=== PATIENT | female | born 2005 | race African-American/Black ===

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

== ENCOUNTER 2024-06-12 00:49 | Emergency (ER) | payer OTHER, SELFPAY ==
--- NOTE | ~2024-06-12 | US_ITS ---
EXAM: Pelvic Ultrasound CLINICAL INDICATION: Pelvic pain. Vaginal bleeding. COMPARISON: None available TECHNIQUE: The pelvis was evaluated using transabdominal and transvaginal imaging. FINDINGS: The uterus measures 7.4 x 2.9 x 3.8 cm in longitudinal by AP by transverse dimension. The endometrial stripe is not thickened and measures 0.2 cm. A small nabothian cyst is noted within the cervix. The left ovary measures approximately 2.8 x 1.4 x 1.1 cm and is normal. The right ovary measures approximately 2.3 x 2.3 x 2.0 cm and is also normal. There are no abnormal adnexal masses. There is no free fluid in the pelvis. US/US pelvic and transvaginal IMPRESSION: Unremarkable sonographic imaging of the pelvis. Electronically signed by: Jonathon Fisher MD 06/12/2024 08:15 AM EDT
[2024-06-12 01:18] VITALS: BP 134/67; PULSE 87; RESP 18; TEMP 36.8; O2SAT 98; BMI 40.1
[2024-06-12 01:32] LABS: Basophils Absolute Auto 0.1 X10*3/uL (0.0-0.2); Basophils Percent Auto 0.5 % (0-2); Eosinophils Absolute Auto 0.3 X10*3/uL (0.0-0.4); Eosinophils Percent Auto 2.3 % (0-4); Hematocrit 36.3 % (37.0-47.0); Hemoglobin 12.3 g/dl (12.0-16.0); Imm Gran Abs Auto 0.04 X10*3/uL (0.00-0.03); Imm Gran Pct Auto 0.3 % (0.0-0.4); Lymphocytes Absolute Auto 4.2 X10*3/uL (1.2-4.9); Lymphocytes Percent Auto 36.2 % (20-40); MANUAL DIFF FLAG SCAN; Mean Corpuscular HGB Conc 33.9 g/dl (31.0-35.0); Mean Corpuscular Hemoglobin 31.1 pg (27.0-33.0); Mean Corpuscular Volume 91.9 fL (80.0-98.0); Mean Platelet Volume 10.2 fL (9.4-12.3); Monocytes Absolute Auto 0.6 X10*3/uL (0.1-1.2); Monocytes Percent Auto 5.5 % (2-11); Neutrophils Absolute Auto 6.4 x10*3/uL (2.0-8.3); Neutrophils Percent Auto 55.2 % (45-73); Platelet Count 219 X10*3/uL (160-400); Red Blood Count 3.95 X10*6/uL (4.20-5.50); Red Cell Distribution Width 12.1 % (11.0-16.0); SCAN SMEAR FLAG 1; White Blood Count 11.6 X10*3/uL (4.8-10.8)
[2024-06-12 01:51] LABS: Alanine Aminotransferase 15 U/L (0-31); Albumin Level 4.1 g/dL (3.5-5.0); Alkaline Phosphatase 60 U/L (39-117); Anion Gap 11 (12-20); Aspartate Amino Transferase 16 U/L (5-31); Bilirubin Total 0.2 mg/dL (0.0-1.0); Blood Urea Nitrogen 17 mg/dL (9-16); Calcium 9.3 mg/dL (8.4-10.2); Carbon Dioxide 25 mmol/L (22-29); Chloride 109 mmol/L (96-108); Creatinine Clr Calc Pharmacy 135.2; Estimated Glomerular Filt Rate > 60; Glucose Random 82 mg/dL (60-115); Potassium 3.8 mmol/L (3.3-5.1); Sodium 141 mmol/L (135-145); Total Protein 7.7 g/dL (6.5-8.0)
[2024-06-12 01:52] LABS: HCG Quantitative < 2 mIU/mL
[2024-06-12 02:12] LABS: SLIDE REVIEW VERIFIED
[2024-06-12 03:18] LABS: Appearance Urine Clear; Color Urine Yellow; Glucose Urine UA Negative (Negative); Leukocyte Esterase Urine Negative (Negative); Nitrite Urine Negative (Negative); PH 6.5 (5.0-9.0); Specific Gravity - Urine >= 1.030 (1.005-1.025); UMIC TRIGGER UACC YES; Urine Blood Large (3+) (Negative); Urine Ketones Negative (Negative); Urine Protein Trace mg/dL (Neg-Trace)
[2024-06-12 03:30] LABS: Bacteria Urine 1+ (None Seen); Hyaline Casts Urine 0-2 /LPF (0-2); UACC Culture Trigger YES
[2024-06-12 04:42] VITALS: BP 100/67; PULSE 72; RESP 18; TEMP 36.3; O2SAT 99
--- NOTE | 2024-06-12 07:13 | ED_ITS ---
HPI - Female Genitourinary General Chief complaint: Vaginal Bleeding Stated complaint: vag bleeding Time Seen by Provider: 06/12/24 06:33 Source: patient and family Mode of arrival: ambulatory Limitations: no limitations History of Present Illness ED Provider: Nathalia Garza APRN HPI Narrative: 19-year-old female with no known medical history presents to the ER with complaints of vaginal bleeding since June 08. Patient reports her last menstrual cycle was May 30. She normally has a menstrual cycle every month and does not normally have irregular bleeding. She has had bright red bleeding and has needed to use 3-4 tampons daily. No clots. Starting June 08 she did start to have some intermittent left lower pelvic discomfort which is described as sharp stabbing. At this time she does not have any pain. She denies any associated vomiting, diarrhea, constipation, urinary symptoms, fevers or chills. No vaginal discharge, rashes or lesions. Patient presents with her sexual partner. She denies any new sexual partners. She tells me that she was recently tested for STDs and was negative and she is not interested in STD testing at this time. She has never seen a clinical documentation specialist or had a pelvic pain. She is not on control at this time. Related Data Previous Rx's ?Medication ?Instructions ?Recorded amoxicillin 875 mg-potassium 1 tab PO BID #14 tabs 04/01/23 clavulanate 125 mg tablet chlorhexidine gluconate 0.12 % 15 ml buccal BID #473 mL 04/01/23 mouthwash (Peridex) ibuprofen 600 mg tablet 600 mg PO Q8H PRN pain #14 tabs 04/01/23 Allergies Allergy/AdvReac Type Severity Reaction Status Date / Time No Known Allergies Allergy Verified 06/12/24 01:21 Review of Systems 2 Review of Systems: Yes all other systems are reviewed and are negative Constitutional: Constitutional: Reports no additional constitutional complaints, Denies body ache(s), Denies chills, Denies fever(s), Denies headache(s) and Denies weakness Eyes: Eyes: Reports no additional eye complaints and Denies change in vision ENT: Reports system reviewed and no additional complaints, except as documented, Denies dizziness, Denies headache(s), Denies nasal congestion, Denies nasal discharge and Denies neck pain Cardiovascular: Cardiovascular: Reports no additional cardiovascular complaints, Denies chest pain, Denies leg edema and Denies dyspnea Respiratory: Respiratory: Reports no additional respiratory complaints, Denies cough and Denies dyspnea Gastrointestinal: Gastrointestinal: Reports no additional gastrointestinal complaints, Denies abdominal pain, Denies diarrhea, Denies nausea and Denies vomiting Genitourinary: Genitourinary: Reports no additional female genitourinary complaints, Reports abnormal vaginal bleeding, Denies hematuria, Denies dysuria, Reports pelvic pain, Denies flank pain, Denies urinary incontinence, Denies urinary hesitancy, Denies urinary urgency, Denies vaginal discharge and Denies vaginal pruritus Musculoskeletal: Musculoskeletal: Reports no additional musculoskeletal complaints, Denies back pain, Denies arthralgias, Denies joint swelling, Denies neck pain, Denies numbness and Denies tingling Integumentary/Breasts: Skin/Breast: Reports system reviewed and no additional complaints, except as docu and Denies rash Neurologic: Reports system reviewed and no additional complaints, except as documented, Denies Abnormal speech present, Denies dizziness, Denies headache(s), Denies numbness, Denies tingling and Denies weakness PMFSH Past Medical History Attestation statement: The following information was validated with the patient. Source: old records reviewed and nursing notes reviewed Social History Social History Alcohol intake: current Smoked in Last 30 Days: No Use of substances other than those prescribed or required for medical reasons: Yes Substance Use Type: Marijuana Substance Use Frequency: Daily Advance Directives: No Advance Directives Information Provided: No Do you have a plan to hurt others: No Plan Patient : No Physical Exam 2 Vital Signs: Vital Signs: Last Vital Signs Temp 97.4 F 06/12/24 04:42 Pulse 72 06/12/24 04:42 Resp 18 06/12/24 04:42 BP 100/67 06/12/24 04:42 Pulse Ox 99 06/12/24 04:42 O2 Del Method Room Air 06/12/24 04:42 BMI result Body Mass Index 40.1 Const: General: cooperative, healthy appearing, comfortable and no acute distress Orientation/consciousness: patient oriented x3 Limitations: no limitations HEENT: Head: Yes normal to inspection Ears: hearing grossly normal bilaterally General nose exam: Normal external nose present Face and sinus: Yes normal facial exam Mouth: Normal oral and palatal mucosa present Throat: Yes posterior oropharynx normal Eyes: General: appearance normal, both eyes and all related structures P upils: Equal, round and reactive pupils present Neck: Neck: Yes normal visual inspection Chest: Chest palpation & inspection: normal inspection of the chest Resp: Effort & Inspection: normal respiratory effort Auscultation: clear to auscultation bilaterally Cardio: Rate: regular rate Rhythm: regular rhythm Peripheral pulses: P eripheral pulses 2+ throughout GI: Inspection: Yes normal to inspection Palpation (GI): Soft to palpation and nontender Auscultation: normal bowel sounds : Other: Idalmis RN psychiatric tech Scant vaginal bleeding noted External Female Exam: normal external appearance Speculum Exam - Vagina: normal appearance of the vagina Speculum Exam - Cervix: normal appearance of the cervix Bimanual exam- vagina & uterus: normal bimanual exam and no cervical motion tenderness Bimanual Exam- Adnexa, other: normal adnexae and no tenderness Back/Spine/Pelvis: Thoracic/Lumbar Spine: thoracic and lumbar spine normal to inspection Skin: General skin exam: no rashes or lesions noted Neuro: General: patient oriented x3, no focal motor deficits and normal sensation to monofilament Cranial nerves: Yes Equal, round and reactive pupils present Cognition (Neuro): normal cognition Speech: No Abnormal speech present Gait exam (Neuro): Normal gait present Motor exam (neuro): 5/5 motor strength present throughout Extrem: General: Yes normal to inspection Course Course Course Narrative: Pelvic exam shows scant bleeding otherwise unremarkable. No CMT or adnexal tenderness suggest PID. Urine is negative for infection. Labs are unremarkable. Pelvic ultrasound is normal. Patient has no focal abdominal pain on exam so I do not believe that she needs CT imaging. She likely has some dysfunctional uterine bleeding. I recommend that she follow up outpatient with gynecology for routine care. I did review worrisome signs and symptoms with her and when to return to the emergency room. Comfortable plan for discharge home Medical Decision Making Medical Decision Making MDM Narrative: 19-year-old female with no known medical history presents to the ER with complaints of vaginal bleeding since June 08.? Patient reports her last menstrual cycle was May 30.? She normally has a menstrual cycle every month and does not normally have irregular bleeding.? She has had bright red bleeding and has needed to use 3-4 tampons daily.? No clots.? Starting June 08 she did start to have some intermittent left lower pelvic discomfort which is described as sharp stabbing.? At this time she does not have any pain.? She denies any associated vomiting, diarrhea, constipation, urinary symptoms, fevers or chills.? No vaginal discharge, rashes or lesions.? Patient presents with her sexual partner.? She denies any new sexual partners.? She tells me that she was recently tested for STDs and was negative and she is not interested in STD testing at this time. She has never seen a clinical documentation specialist or had a pelvic pain. She is not on control at this time.? Abdominal exam is nonfocal. Patient is hemodynamically stable. Vitals are stable. Will obtain labs, UA, urine , pelvic ultrasound, pelvic exam Differential Diagnosis Differential Diagnoses: The differential diagnosis associated with the presentation includes Ectopic , early , STI, dysmenorrhea Low suspicion for PID, TOA, appendicitis Admission/Observation Consideration of admission/observation: Escalation of care including admission/observation considered Lab Data MDM Lab Attestation statement: I reviewed the patient's lab results. 06/12/24 01:25 06/12/24 01:25 Labs: Lab Results 06/12/24 06/12/24 Range/Units 01:25 03:11 WBC 11.6 H (4.8-10.8) X10*3/uL RBC 3.95 L (4.20-5.50) X10*6/uL Hgb 12.3 (12.0-16.0) g/dl Hct 36.3 L (37.0-47.0) % MCV 91.9 (80.0-98.0) fL MCH 31.1 (27.0-33.0) pg MCHC 33.9 (31.0-35.0) g/dl RDW 12.1 (11.0-16.0) % Plt Count 219 (160-400) X10*3/uL MPV 10.2 (9.4-12.3) fL Immature Gran % (Auto) 0.3 (0.0-0.4) % Neut % (Auto) 55.2 (45-73) % Lymph % (Auto) 36.2 (20-40) % [place] % (Auto) 5.5 (2-11) % Eos % (Auto) 2.3 (0-4) % Baso % (Auto) 0.5 (0-2) % Lymph # (Auto) 4.2 (1.2-4.9) X10*3/uL [place] # (Auto) 0.6 (0.1-1.2) X10*3/uL Eos # (Auto) 0.3 (0.0-0.4) X10*3/uL Baso # (Auto) 0.1 (0.0-0.2) X10*3/uL Abs Immat Gran (auto) 0.04 H (0.00-0.03) X10*3/uL Absolute Neuts (auto) 6.4 (2.0-8.3) x10*3/uL Absolute Nucleated RBC 0.000 (0.0-0.012) X10*3/uL Nucleated RBC % (auto) 0.0 (0.0-0.2) /100WBC Smear Tech's Comments VERIFIED Sodium 141 (135-145) mmol/L Potassium 3.8 (3.3-5.1) mmol/L Chloride 109 H (96-108) mmol/L Carbon Dioxide 25 (22-29) mmol/L Anion Gap 11 L (12-20) BUN 17 H (9-16) mg/dL Creatinine 0.76 (0.5-1.4) mg/dL Estim Creat Clear Calc 135.2 Estimated GFR > 60 Random Glucose 82 (60-115) mg/dL Calcium 9.3 (8.4-10.2) mg/dL Total Bilirubin 0.2 (0.0-1.0) mg/dL AST 16 (5-31) U/L ALT 15 (0-31) U/L Alkaline Phosphatase 60 (39-117) U/L Total Protein 7.7 (6.5-8.0) g/dL Albumin 4.1 (3.5-5.0) g/dL Lipase 20 (8-78) U/L Beta HCG, Quant < 2 mIU/mL Urine Color Yellow Urine Appearance Clear Urine pH 6.5 (5.0-9.0) Ur Specific Vancleve >= 1.030 H (1.005-1.025) Urine Protein Trace (Neg-Trace) mg/dL Urine Glucose (UA) Negative (Negative) mg/dL Urine Ketones Negative (Negative) mg/dL Urine Blood Large (3+) H (Negative) Urine Nitrite Negative (Negative) Ur Leukocyte Esterase Negative (Negative) Urine RBC 6-10 H (0-2) /HPF Urine WBC 6-10 H (0-5) /HPF Ur Squamous Epith Cells 6-10 (0-2) /HPF Urine Bacteria 1+ (None Seen) Hyaline Casts 0-2 (0-2) /LPF Independent Interpretation I performed an independent interpretation of an: Ultrasound Interpretation: I independently reviewed the US and agree with the rad report Radiology Impression Discussion of test interpretation with radiology: I have reviewed the radiologist's reading. Radiologist Impression: [address] [address] Ultrasound Report Signed Patient: Genia Mancia MR#: [id number] : 2005 Acct:[id number] Age/Sex: 19 / F ADM Date: 06/12/24 Loc: .ED Attending Dr: Ordering Physician: Nathalia Baer NP Date of Service: 06/12/24 Procedure(s): US pelvic and transvaginal Accession Number(s): [id number] cc: Physician,Unknown ; Nathalia Baer NP~ EXAM: Pelvic Ultrasound CLINICAL INDICATION: Pelvic pain. Vaginal bleeding. COMPARISON: None available TECHNIQUE: The pelvis was evaluated using transabdominal and transvaginal imaging. FINDINGS: The uterus measures 7.4 x 2.9 x 3.8 cm in longitudinal by AP by transverse dimension. The endometrial stripe is not thickened and measures 0.2 cm. A small nabothian cyst is noted within the cervix. The left ovary measures approximately 2.8 x 1.4 x 1.1 cm and is normal. The right ovary measures approximately 2.3 x 2.3 x 2.0 cm and is also normal. There are no abnormal adnexal masses. There is no free fluid in the pelvis. US/US pelvic and transvaginal IMPRESSION: Unremarkable sonographic imaging of the pelvis. Independent Historian Clinical information obtained from an independent historian. History obtained from or confirmed by: Friend Discharge Plan Discharge Clinical Impression: Dysfunctional uterine bleeding Patient Disposition: Home, Self-Care Instructions: Dysfunctional Uterine Bleeding (ED) Additional Instructions: Your test is negative Your testing for vaginal infections or pending Your ultrasound is normal Your labs are normal Your urine shows no signs of infection You need to follow up outpatient with gynecology Return for worsening abdominal pain, heavy vaginal bleeding which involves using more than 1 pad per hour Prescriptions: No Action amoxicillin-pot clavulanate 875-125 mg tablet 1 tab PO BID Qty: 14 0RF chlorhexidine gluconate [Peridex] 0.12 % mouthwash 15 ml buccal BID Qty: 473 0RF ibuprofen 600 mg tablet 600 mg PO Q8H PRN (Reason: pain) Qty: 14 0RF Referrals: Physician,Mir J [Primary Care Provider] - 1 week Steve Parks MD [Physician] - 2 weeks Print Language: Australian
[2024-06-12 07:42] LABS: Lipase 20 U/L (8-78)
[2024-06-12 08:43] VITALS: BP 100/67; PULSE 72; RESP 18; TEMP 36.3; O2SAT 99
[2024-06-12 09:14] LABS: Bacterial Vaginosis PCR POSITIVE (Negative); Candida Group PCR NOT DETECTED (Not Detect); Candida glab krusei PCR NOT DETECTED (Not Detect); Trichomonas vaginalis PCR NOT DETECTED (Not Detect)
== END 2024-06-12 08:44 | disposition home or self-care (01) ==
PROVIDERS: Emergency Medicine Emergency Medical Services; Nurse Practitioner Family; Emergency Provider Emergency Medicine
DX: N76.0 Acute vaginitis (principal); N93.8 Other specified abnormal uterine and vaginal bleeding; N93.9 Abnormal uterine and vaginal bleeding, unspecified; R10.2 Pelvic and perineal pain; Z51.81 Encounter for therapeutic drug level monitoring; Z79.899 Other long term (current) drug therapy
CPT/HCPCS: 0352U; 36415; 76830; 76856; 80053; 81001; 83690; 84702; 85025; 87086; 99284

== ENCOUNTER 2025-03-13 13:19 | Emergency (ER) | payer OTHER, SELFPAY ==
[2025-03-13 13:22] VITALS: BP 117/73; PULSE 111; RESP 16; TEMP 37.1; O2SAT 98; BMI 43.1
--- NOTE | 2025-03-13 13:22 | ED.URI ---
HPI - URI/Sore Throat General Chief Complaint: Upper Respiratory Symptoms Stated Complaint: Sore throat Time Seen by Provider: 03/13/25 13:25 Source: patient Mode of arrival: ambulatory Limitations: no limitations History of Present Illness ED Provider: sommer montero np HPI Narrative: Patient is 19-year-old female who presents emergency department for evaluation of sore throat with exudates over the past 3 days pain of the swollen significant other is ill with similar symptoms. Has been associated intermittent productive cough. Denies concern for sexually transmitted infection. Denies fevers, chills, headache, dizziness, neck pain, neck stiffness, chest pain, shortness of breath, difficulty breathing, nausea, vomiting, abdominal pain, numbness or tingling of the extremities, genitourinary symptoms. Related Data Previous Rx's ?Medication ?Instructions ?Recorded amoxicillin 875 mg-potassium 1 tab PO BID #14 tabs 04/01/23 clavulanate 125 mg tablet chlorhexidine gluconate 0.12 % 15 ml buccal BID #473 mL 04/01/23 mouthwash (Peridex) ibuprofen 600 mg tablet 600 mg PO Q8H PRN pain #14 tabs 04/01/23 metronidazole 500 mg tablet 500 mg PO BID 7 days #14 tabs 06/14/24 amoxicillin 500 mg capsule 500 mg PO BID #20 caps 03/13/25 Allergies Allergy/AdvReac Type Severity Reaction Status Date / Time No Known Allergies Allergy Verified 03/13/25 13:24 Review of Systems Review of Systems: Yes all other systems are reviewed and are negative PMFSH Past Medical History Attestation statement: The following information was validated with the patient. Source: old records reviewed Social History Social History Alcohol intake: current Substance Use Type: Marijuana Advance Directives: No Advance Directives Information Provided: Yes Do you have a plan to hurt others: No Plan Physical Exam Vital Signs: Vital Signs: Last Vital Signs Temp 98.7 F 03/13/25 14:33 Pulse 111 H 03/13/25 14:33 Resp 16 03/13/25 14:33 BP 117/73 03/13/25 14:33 Pulse Ox 98 03/13/25 14:33 O2 Del Method Room Air 03/13/25 14:33 BMI result Body Mass Index 43.1 Appearance: Alert.?Oriented to person, place and time. No acute distress.?Normal affect. Eyes: Pupils equal, round and reactive to light.? ENT: TM normal bilaterally. Pharynx is erythematous with 2+ tonsillar hypertrophy bilaterally, white exudates. Uvula is midline. No trismus. No drooling. Neck: Normal inspection.? Neck supple.??No cervical adenopathy CVS: Heart sounds normal. Normal heart rate and rhythm.? Pulses normal.?? Respiratory: No respiratory distress.? Lung sounds clear to auscultation bilaterally?? Abdomen: Soft and non-tender. Normoactive bowel sounds. Skin: Skin warm and dry.? Normal skin color.? ? Extremities: No lower extremity edema.? Neuro: Moves all extremities spontaneously. Sensation intact bilaterally. No motor deficits. Ambulates with normal steady gait. Medical Decision Making Medical Decision Making [facility] Narrative: Patient is a 19-year-old female presenting for evaluation of cough and sore throat COVID-19 /influenza testing negative. Group a strep testing is positive, examination not consistent with RPA/PERSONNEL ADMINISTRATOR. At this time history and physical exam with low suspicion for pneumonia. Well-appearing, nontoxic, afebrile, no tachypnea/hypoxia. Speaking clear full sentences, ambulatory with steady gait. Discussed conservative treatment including rest, hydration, Tylenol/ibuprofen as needed for fever and body aches, saline nasal spray, humidifier, gfod-plg-nsooxml cold medication. Advised to follow-up with primary care provider as needed, discussed reasons to return back to the emergency department. All questions were answered. Patient discharged home in stable condition. Differential Diagnosis Differential Diagnoses: The differential diagnosis associated with the presentation includes ( See narrative above) Admission/Observation Consideration of admission/observation: Escalation of care including admission/observation considered ( see narrative above) Lab Data [facility] Lab Attestation statement: I reviewed the patient's lab results. ( see narrative above) Labs: Lab Results 03/13/25 Range/Units 13:39 Influenza Type A (PCR) NEGATIVE (Negative) Influenza Type B (PCR) NEGATIVE (Negative) RSV RNA Qual (PCR) NEGATIVE (Negative) SARS-CoV-2 RNA (RT-PCR) NEGATIVE (Negative) S. pyogenes GrpA LUTHER Positive A (Negative) External Record Review External record reviewed: Outpatient record Prescription Management I considered prescription management with: Pain Medication ( acetaminophen/ibuprofen) and Antibiotic Discharge Plan Discharge Clinical Impression: Acute streptococcal pharyngitis Patient Disposition: Home, Self-Care Instructions: Strep Throat (DC) Additional Instructions: Prescription for antibiotic has been sent to your pharmacy, please complete the entire course, do not skip any doses or stop taking early even if you begin to feel better. Be sure to rest, stay well hydrated drinking plenty of fluids, eat small frequent meals. Warm saltwater gargles can be helpful as well, ifzj-sig-zcopmoc Chloraseptic throat spray/throat lozenges can be helpful. Tylenol/ibuprofen can be used as needed for fever/pain. You may return to the emergency department with any new or worsening symptoms or concerns. Follow-up with your primary care provider as needed. It is very important to use a back-up form of control, such as barrier condoms/abstinence, while on antibiotics and for one week after as they may be ineffective in preventing while on the antibiotics. While taking antibiotics, please include probiotics that can be found over the counter or yogurt in your diet. If symptoms of a yeast infection or diarrhea occur, please seek evaluation. Prescriptions: New amoxicillin 500 mg capsule 500 mg PO BID Qty: 20 0RF No Action amoxicillin-pot clavulanate 875-125 mg tablet 1 tab PO BID Qty: 14 0RF chlorhexidine gluconate [Peridex] 0.12 % mouthwash 15 ml buccal BID Qty: 473 0RF ibuprofen 600 mg tablet 600 mg PO Q8H PRN (Reason: pain) Qty: 14 0RF metronidazole 500 mg tablet 500 mg PO BID 7 Days Qty: 14 0RF Referrals: Physician,Unknown J [Primary Care Provider, Medical] Interventions: ED Discharge Assessment Last Done: 03/13/25 14:33 Discharge Date/Time: 03/13/25 14:20 Print Language: Tamazight
[2025-03-13 13:52] LABS: IDNOW Serial# 55D5AD1C; Strep A Nucleic Acid Positive (Negative)
[2025-03-13 14:33] VITALS: BP 117/73; PULSE 111; RESP 16; TEMP 37.1; O2SAT 98
--- OUTSIDE RECORDS SUMMARY | 2025-03-13 14:34 | XMS_ITS | Patient Health Record ---
Author Organization [facility] Address [address] [id number] Care Team Providers Care [employer] Name Role Phone FILOMENA VALENCIA [facility] [phone] Allergies Allergen (clinical drug ingredient) Drug/Non Drug Allergy documented on EMR Reaction Allergy Type Onset Date Status Cat dander Cat Dander Unknown Allergy Active Results Component Value Reference Range Notes Test, Urine Reviewed date:05/11/2024 11:02:41 AM Interpretation:Negative Performing Lab: Notes/Report: Negative Test, Urine neg Lot # [id number] Exp. Date 03/09/2025 Chlamydia/GC Amplification-1 [id number] Reviewed date:05/12/2024 04:17:14 PM Interpretation:Negative Performing Lab:[facility] Whittaker, Emily Amanda [employer], [place] [facility], [place], Phone - [phone], Director - [facility] Notes/Report: Chlamydia trachomatis, NEW Negative Negative Neisseria gonorrhoeae, NEW Negative Negative Trich vag by [id number] Reviewed date:05/12/2024 04:17:24 PM Interpretation:Negative Performing Lab:[facility] Panfilo, Emily Amanda Silverman, [address] [facility], [place], Phone - [phone], Director - [facility] Notes/Report: Trich vag by NEW Negative Negative Test, Urine Reviewed date:09/14/2024 10:38:55 AM Interpretation:Negative Performing Lab: Notes/Report: Negative Test, Urine neg Lot # [id number] Exp. Date 05/30/2025 Urinalysis Reviewed date:09/14/2024 10:39:55 AM Interpretation:Normal Performing Lab: Notes/Report: Normal Leukocytes - Nitrates - Uro 0.2 Protein 15 pH 6.0 Blood - Spec Moodus 1.030 Ketones - Bilirubin - Glucose - Wet Mount Reviewed date:09/14/2024 10:38:57 AM Interpretation:See details Performing Lab: Notes/Report: See details Clue Cells Neg WBC scant Hyphae neg Trichomonas neg pH 5 FABIO Prep ? faint positive NuSwab VG+, Fay 6sp-1800 68 Reviewed date:09/16/2024 02:15:15 PM Interpretation:Negative Performing Lab:[facility], [address] [facility], [place], Phone - [phone], Director - MDJoy Notes/Report: and Drug Administration. by [employer]. It has not been cleared or approved by the Food was developed and its performance characteristics determined 099427-Rxgfdsm krusei, NEW 252995-W parapsilosis/tropicalis; 249618-Jhqnsnp lusitaniae, NEW; Test(s) 237070-Dcvojle albicans, NEW; 531264-Asexwly glabrata, NEW; and Drug Administration. by [employer]. It has not been cleared or approved by the [employer] was Booster and its performance characteristics determined Ureaplasma spp NEW Megasphaera 1; 994448-Kbbitbeefj hominis NEW; 780639- Test(s) 509827- Atopobium vaginae; 568677- BVAB 2; 075178- Atopobium vaginae Low - 0 BVAB 2 Low - 0 Megasphaera 1 Low - 0 Calculate total score by adding the 3 individual bacterial vaginosis (BV) marker scores together. Total score is interpreted as follows: Total score 0-1: Indicates the absence of BV. Total score 2: Indeterminate for BV. Additional clinical data should be evaluated to establish a diagnosis. Total score 3-6: Indicates the presence of BV. Fay albicans, NEW Negative Negative Fay glabrata, NEW Negative Negative C parapsilosis/tropicalis Negative Negative Th is assay does not differentiate C. tropicalis and C. parapsilosis. Fay lusitaniae, NEW Negative Negative Fay krusei, NEW Negative Negative Trich vag by NEW Negative Negative Chlamydia trachomatis, NEW Negative Negative Neisseria gonorrhoeae, NEW Negative Negative Genital Mycoplasmas NEW, [facility] [id number] Reviewed date:09/16/2024 02:16:33 PM Interpretation:Ureaplasma positive Performing Lab:[facility], [address], [place], Phone - [phone], Director - Joy Notes/Report: Test(s) 682017- Atopobium vaginae; 202806- BVAB 2; 861854- Megasphaera 1; 606557-Yihpswkitg hominis NEW; 027605- Ureaplasma spp NEW was developed and its performance characteristics determined by [facility]. It has not been cleared or approved by the Food and Drug Administration. Test(s) 351570-Rrvcexy albicans, NEW; 422588-Sfsmjdd glabrata, NEW; 897619-M parapsilosis/tropicalis; 917409-Nxkhlmf lusitaniae, NEW; 814075-Gsmvwtz krusei, NEW was developed and its performance characteristics determined by [facility]. It has not been cleared or approved by the Food and Drug Administration. Mycoplasma genitalium NEW Negative Negative Mycoplasma hominis NEW Negative Negative Ureaplasma spp NEW Positive Negative Test, Urine Reviewed date:11/30/2024 03:46:12 PM Interpretation:Negative Performing Lab: Notes/Report: Negative Test, Urine neg Lot # [id number] Exp. Date 05/30/2025 Urinalysis Reviewed date:11/30/2024 04:48:40 PM Interpretation:Leuks positive Performing Lab: Notes/Report: Leuks positive Leukocytes 70 Nitrates - Uro 0.2 Protein 15 pH 7.0 Blood - Spec Moodus 1.015 Ketones - Bilirubin - Glucose - Wet [place] Reviewed date:11/30/2024 03:51:08 PM Interpretation:Yeast positive Performing Lab: Notes/Report: Yeast positive Clue Cells neg WBC pos Hyphae pos Trichomonas neg pH 4.5 FABIO Prep neg whiff Urine Culture, Routine-[id number] 7 Reviewed date:12/02/2024 10:15:36 AM Interpretation:Mixed urogenital debbie Performing Lab:[facility] Emily Whittaker [employer], [address], [place], Phone - [phone], Director - [facility] Notes/Report: Urine Culture, Routine Final report Result 1 Mixed urogenital debbie 25,000-50,000 colony forming units per mL Ct, Ng, Trich vag by [id number] Reviewed date:12/02/2024 10:11:56 AM Interpretation:Negative Performing Lab:[facility] Emily Whittaker Amanda [employer]arate[employer]andr, [address], [place], Phone - [phone], Director - [facility] Notes/Report: Chlamydia by NEW Negative Negative Gonococcus by NEW Negative Negative Trich vag by NEW Negative Negative Reason For Referral No Information Medications Medication SIG (Take, Route, Fr equency, Duration) Notes Start Date End Date Status Miconazole 7 2 % 1 applicatorful at b edtime Vaginal Once a day for 7 day(s) 11/30/2024 Active Social History Sex Assigned At : Social History Observation Description Sex Assigned At Female Section Notes: Aptima/ Bw Aptima/ Bw Aptima/Bw/Pt Aptima Aptima Social hx not reviewed today Problems Problem Type SNOMED Code ICD Code Onset Dates Problem Status W/U Status Risk Notes Problem Menstrual disorder (903051043) Irregular menses (N92.6) Active confirmed Vital Signs Blood pressure diastolic 66 mm Hg 11/30/2024 bhg g Height 5'3 in 11/30/2024 bhgg BMI Percentile 98.33 % 05/11/2024 Blood pressure systolic 130 mm Hg 11/30/2024 bhgg Weight 249.1 lbs 11/30/2024 gg BMI 44.12 kg/m2 11/30/2024 [facility] Encounters Encounter Location Date Provider Diagnosis [address] [id number] 05/11/2024 FILOMENA VALENCIA Encounter for preg sushant test, result negative Z32.02 ; Irregular menses N92.6 and Encounter for screening for infections with a predominantly sexual mode of transmission Z11.[address] [id number] 09/14/2024 FILOMENA VALENCIA Encounter for scre ening for infections with a predominantly sexual mode of transmission Z11.3 ; Vaginal discharge N89.8 ; Urinary frequency R35.0 ; Other problems related to lifestyle Z72.89 and Encounter for test, result negative Z32.[address] [id number] 09/16/2024 FILOMENA VALENCIA Vaginitis, Acute N 76.[address] [id number] 11/30/2024 FILOMENA VALENCIA Encounter for scre ening for infections with a predominantly sexual mode of transmission Z11.3 ; Encounter for test, result negative Z32.02 ; Dysuria R30.0 ; Acute candidiasis of vulva and vagina B37.31 and Other problems related to lifestyle Z72.89 [facility] [address] [id number] 09/16/2024 FILOMENA VALENCIA [facility] [address] [id number] 09/19/2024 FILOMENA VALENCIA [facility] [address] [id number] 12/02/2024 FILOMENA VALENCIA Assessments Encounter Date Diagnosis (ICD Code) Assessment Notes Treatment Notes Treatment Clinical Notes Section Notes 05/11/2024 Encounter for test, result negative (ICD-10 - Z32.02) Need 2 out of 3 Sections from A-C Section A) Problems (only need one from below) Section B) Data (need at least one of the following categories in this section) Category 1: (Choose three of the following): Order Unique tests Section C) Risk (any one of the following) Prescription drug management (this counts for the whole section) 05/11/2024 Irregular menses (ICD-10 - N92.6) Reviewed clt's concerns for a late cycle last month by about 1 week. Reviewed dates of past few months. Advised clt that cycles can be off from time to time. If tests are neg then usually not too concerning. Stress, lack of sleep, diet/weight changes, traveling are possible things that can affect the timeliness of someone's cycle. Encouraged clt to continue to track cycles and if they continue to experience concerns to RTC to further discuss/evaluat e. Clt in agreement with plan Need 2 out of 3 Sections from A-C Section A) Problems (only need one from below) Section B) Data (need at least one of the following categories in this section) Category 1: (Choose three of the following): Order Unique tests Section C) Risk (any one of the following) Prescription drug management (this counts for the whole section) 09/14/2024 Encounter for screening for infections with a predominantly sexual mode of transmission (ICD-10 - Z11.3) Discussed STI risks, screenings that are available through [facility]. Clt aware of lab processing times and how to view results on portal and how positive results will be communicated Need 2 out of 3 Sections from A-C Section A) Problems (only need one from below) One acute or uncomplicated illness/injury Section B) Data (at least one of the following categories in this section) Category 1: (Choose 2 of the following): Order unique tests Section C) Risk Document low risk of morbidity/mortal ity 09/14/2024 Vaginal discharge (ICD-10 - N89.8) Results inconclusive via wet mount. Will send off vaginitis panel, STI screening and mycoplasma panel. Will reach out to clt once results back Need 2 out of 3 Sections from A-C Section A) Problems (only need one from below) One acute or uncomplicated illness/injury Section B) Data (at least one of the following categories in this section) Category 1: (Choose 2 of the following): Order unique tests Section C) Risk Document low risk of morbidity/mortal ity 09/16/2024 Vaginitis, Acute (ICD-10 - N76.0) Reviewed test results and treatment. Partner testing/treatme nt reviewed. Would like EPT Rx. Spent 15 minutes doing the following: Chart Prep Obtaining/review ing history Counseling/Coord ination of Care Documenting the visit Educating the patient Ordering medication/test/ procedures Established Patient: 97162 10 Minutes 11/30/2024 Encounter for screening for infections with a predominantly sexual mode of transmission (ICD-10 - Z11.3) Discussed STI risks, screenings that are available through [facility] safe [facility]. Clt aware of lab processing times and how to view results on portal and how positive results will be communicated Need 2 out of 3 Sections from A-C Section A) Problems (only need one from below) Section B) Data (need at least one of the following categories in this section) Category 1: (Choose three of the following): Order Unique tests Section C) Risk (any one of the following) Prescription drug management (this counts for the whole section) 11/30/2024 Encounter for test, result negative (ICD-10 - Z32.02) Neg testing today. Do recommend clt reschedule missed [employer] INSTRU[employer] appointment for irreg menses work up. Question of PCOS Need 2 out of 3 Sections from A-C Section A) Problems (only need one from below) Section B) Data (need at least one of the following categories in this section) Category 1: (Choose three of the following): Order Unique tests Section C) Risk (any one of the following) Prescription drug management (this counts for the whole section) 11/30/2024 Dysuria (ICD-10 - R30.0) Will send for urine culture to further evaluate- question if symptoms and leuks related to yeast infection Need 2 out of 3 Sections from A-C Section A) Problems (only need one from below) Section B) Data (need at least one of the following categories in this section) Category 1: (Choose three of the following): Order Unique tests Section C) Risk (any one of the following) Prescription drug management (this counts for the whole section) 09/14/2024 Urinary frequency (ICD-10 - R35.0) UA normal Need 2 out of 3 Sections from A-C Section A) Problems (only need one from below) One acute or uncomplicated illness/injury Section B) Data (at least one of the following categories in this section) Category 1: (Choose 2 of the following): Order unique tests Section C) Risk Document low risk of morbidity/mortal ity 05/11/2024 Encounter for screening for infections with a predominantly sexual mode of transmission (ICD-10 - Z11.3) Discussed STI risks, screenings that are available through [facility] and safe sex. Clt aware of lab processing times and how to view results on portal and how positive results will be communicated Need 2 out of 3 Sections from A-C Section A) Problems (only need one from below) Section B) Data (need at least one of the following categories in this section) Category 1: (Choose three of the following): Order Unique tests Section C) Risk (any one of the following) Prescription drug management (this counts for the whole section) 09/14/2024 Other problems related to lifestyle (ICD-10 - Z72.89) Need 2 out of 3 Sections from A-C Section A) Problems (only need one from below) One acute or uncomplicated illness/injury Section B) Data (at least one of the following categories in this section) Category 1: (Choose 2 of the following): Order unique tests Section C) Risk Document low risk of morbidity/mortal ity 11/30/2024 Acute candidiasis of vulva and vagina (ICD-10 - B37.31) Reviewed yeast findings and treatment options. Advised to resume sexual activity as it feels comfortable to client. Return to the clinic if symptoms not relieved by treatment. Need 2 out of 3 Sections from A-C Section A) Problems (only need one from below) Section B) Data (need at least one of the following categories in this section) Category 1: (Choose three of the following): Order Unique tests Section C) Risk (any one of the following) Prescription drug management (this counts for the whole section) 11/30/2024 Other problems related to lifestyle (ICD-10 - Z72.89) Need 2 out of 3 Sections from A-C Section A) Problems (only need one from below) Section B) Data (need at least one of the following categories in this section) Category 1: (Choose three of the following): Order Unique tests Section C) Risk (any one of the following) Prescription drug management (this counts for the whole section) 09/14/2024 Encounter for test, result negative (ICD-10 - Z32.02) Need 2 out of 3 Sections from A-C Section A) Problems (only need one from below) One acute or uncomplicated illness/injury Section B) Data (at least one of the following categories in this section) Category 1: (Choose 2 of the following): Order unique tests Section C) Risk Document low risk of morbidity/mortal ity 09/14/2024 Other Encouraged to keep appointment with [facility] for amenorrhea concerns Need 2 out of 3 Sections from A-C Section A) Problems (only need one from below) One acute or uncomplicated illness/injury Section B) Data (at least one of the following categories in this section) Category 1: (Choose 2 of the following): Order unique tests Section C) Risk Document low risk of morbidity/mortal ity Plan Of Treatment No Information Insurance Providers Payer Name Payer Address Payer Phone Subscriber Number Group Number Insured Name Patient Relationship to Insured Coverage Start Date Coverage End Date [facility] [address] [place] [id number] Genia Mancia Self - patient is the insured Medical (General) History Medical History History ICD Code Fertility concerns Weight concerns Ureaplasma 09/2024 Hospitalization History Reason Date(Month/Year) tongue infection caused by piercing 04/08 023
[2025-03-13 15:07] LABS: Resp Syncy Virus RNA Qual PCR NEGATIVE (Negative); SARS COV2 PCR INHOUSE NEGATIVE (Negative)
== END 2025-03-13 14:20 | disposition home or self-care (01) ==
PROVIDERS: Nurse Practitioner Family; Emergency Provider Emergency Medicine
DX: J02.0 Streptococcal pharyngitis (principal); Z03.818 Encounter for observation for suspected exposure to other biological agents ruled out
CPT/HCPCS: 87637; 87651; 99282; 99283